=== PATIENT | female | born 1955 | race Caucasian/White ===

== ENCOUNTER 2021-12-19 04:33 | Day surgery (SDC) | payer OTHER, BC ==
[2021-12-12 15:52] VITALS: BMI 33.3
[2021-12-19 09:19] VITALS: TEMP 97.7
[2021-12-19 09:52] VITALS: BP 146/79
[2021-12-19 10:11] VITALS: PULSE 53
== END 2021-12-19 10:06 | disposition home or self-care (01) ==
LOC: JASU-ENDO 04:33
PROVIDERS: ATTEND Internal Medicine Gastroenterology
PROC: 0DBP8ZX Excision of Rectum, Via Natural or Artificial Opening Endoscopic, Diagnostic (ICD-10-PCS; principal; 2021-12-19 09:00)
DX: Z12.11 Encounter for screening for malignant neoplasm of colon (principal); Z86.010 Personal history of colon polyps; K62.1 Rectal polyp; K64.8 Other hemorrhoids; K57.30 Diverticulosis of large intestine without perforation or abscess without bleeding
CPT/HCPCS: 88305-TC